=== PATIENT | male | born 1955 | race African-American/Black ===

== ENCOUNTER 2017-01-12 07:17 | Outpatient (CLI) | payer OTHER ==
[~2017-01-12 07:17] MED LIST: JANUVIA100 MG PO; LIPITOR10 MG PO; MOBIC7.5 M1 PO; NEXIUM40 M1 PO
[2017-01-12 08:11] LABS: PLATELET COUNT 199 K/uL (142-355)
[2017-01-12 08:55] LABS: POTASSIUM 4.7 mmol/L (3.6-5.2); SODIUM 139 mmol/L (136-145)
== END 2017-01-12 19:21 | disposition home or self-care (01) ==
LOC: LABW 07:17
PROVIDERS: Internal Medicine
DX: E11.9 Type 2 diabetes mellitus without complications (principal)
CPT/HCPCS: 36415; 80053; 80061; 81000; 82043; 82570; 83036; 84443; 85027

== ENCOUNTER 2017-06-11 10:26 | Outpatient (CLI) | payer OTHER ==
[2017-06-11 11:00] LABS: PLATELET COUNT 270 K/uL (142-355)
[2017-06-11 11:07] LABS: POTASSIUM 3.8 mmol/L (3.6-5.2); SODIUM 138 mmol/L (136-145)
== END 2017-06-11 11:30 | disposition home or self-care (01) ==
LOC: LABW 10:26
PROVIDERS: Internal Medicine
DX: K92.2 Gastrointestinal hemorrhage, unspecified (principal)
CPT/HCPCS: 36415; 80053; 81000; 85027

== ENCOUNTER 2017-07-20 07:59 | Outpatient (CLI) | payer OTHER ==
[2017-07-20 08:44] LABS: PLATELET COUNT 238 K/uL (142-355)
[2017-07-20 08:47] LABS: POTASSIUM 4.2 mmol/L (3.6-5.2); SODIUM 140 mmol/L (136-145)
== END 2017-07-20 19:12 | disposition home or self-care (01) ==
LOC: LABW 07:59
PROVIDERS: Internal Medicine
DX: E11.9 Type 2 diabetes mellitus without complications (principal)
CPT/HCPCS: 36415; 80053; 80061; 81000; 83036; 84443; 85027

== ENCOUNTER 2018-06-10 08:17 | Outpatient (CLI) | payer OTHER ==
[2018-06-10 08:48] LABS: PLATELET COUNT 224 K/uL (142-355)
[2018-06-10 08:59] LABS: POTASSIUM 4.1 mmol/L (3.6-5.2)
== END 2018-06-10 21:50 | disposition home or self-care (01) ==
LOC: LABW 08:17
PROVIDERS: Internal Medicine
DX: E11.9 Type 2 diabetes mellitus without complications (principal); Z12.5 Encounter for screening for malignant neoplasm of prostate
CPT/HCPCS: 36415; 80053; 80061; 81000; 82043; 82570; 83036; 84153; 84443; 85027

== ENCOUNTER 2019-07-19 07:32 | Outpatient (CLI) | payer OTHER ==
[2019-07-19 07:57] LABS: PLATELET COUNT 228 K/uL (142-355)
[2019-07-19 08:19] LABS: POTASSIUM 4.2 mmol/L (3.6-5.2)
== END 2019-07-19 20:47 | disposition home or self-care (01) ==
LOC: LABW 07:32
PROVIDERS: Internal Medicine
DX: E11.9 Type 2 diabetes mellitus without complications (principal)
CPT/HCPCS: 36415; 80053; 80061; 81000; 83036; 84439; 84443; 85027

== ENCOUNTER 2019-08-17 14:17 | Outpatient (CLI) | payer OTHER | END 2019-08-17 19:31 | disposition home or self-care (01) | LOC: RAD 14:17 | DX: M79.642 Pain in left hand (principal) ==

== ENCOUNTER 2020-07-25 08:20 | Outpatient (CLI) | payer OTHER ==
[2020-07-25 08:47] LABS: PLATELET COUNT 224 K/uL (142-355)
[2020-07-25 09:27] LABS: POTASSIUM 4.7 mmol/L (3.6-5.2)
== END 2020-07-25 22:09 | disposition home or self-care (01) ==
LOC: LABW 08:20
PROVIDERS: ATTEND Internal Medicine
DX: E11.9 Type 2 diabetes mellitus without complications (principal)
CPT/HCPCS: 36415; 80053; 80061; 81000; 82043; 82570; 83036; 84439; 84443; 85027

== ENCOUNTER 2020-08-20 14:20 | Outpatient (CLI) | payer OTHER | END 2020-08-20 20:47 | disposition home or self-care (01) | LOC: RAD 14:20 | PROVIDERS: ATTEND Internal Medicine | DX: M72.2 Plantar fascial fibromatosis (principal) ==

== ENCOUNTER 2021-12-24 15:22 | Outpatient (CLI) | payer OTHER | END 2021-12-24 19:06 | disposition home or self-care (01) | LOC: RAD 15:22 | PROVIDERS: ATTEND Internal Medicine | DX: R06.09 Other forms of dyspnea (principal) ==

== ENCOUNTER 2021-12-25 07:54 | Outpatient (CLI) | payer OTHER ==
[2021-12-25 08:47] LABS: PLATELET COUNT 231 K/uL (142-355)
[2021-12-25 09:08] LABS: POTASSIUM 4.3 mmol/L (3.6-5.2)
== END 2021-12-25 19:14 | disposition home or self-care (01) ==
LOC: LABW 07:54
PROVIDERS: ATTEND Internal Medicine
DX: E11.9 Type 2 diabetes mellitus without complications (principal); R06.09 Other forms of dyspnea
CPT/HCPCS: 36415; 80053; 80061; 81000; 82043; 83036; 83880; 84439; 84443; 85027; 85379

== ENCOUNTER 2022-04-15 09:30 | Outpatient (CLI) | payer OTHER | END 2022-04-15 18:48 | disposition home or self-care (01) | LOC: RAD 09:30 | PROVIDERS: ATTEND Internal Medicine | DX: M54.59 Other low back pain (principal) ==

== ENCOUNTER 2022-04-16 07:26 | Outpatient (CLI) | payer OTHER ==
[2022-04-16 07:41] LABS: PLATELET COUNT 220 K/uL (142-355)
[2022-04-16 08:07] LABS: POTASSIUM 4.5 mmol/L (3.6-5.2)
== END 2022-04-16 19:02 | disposition home or self-care (01) ==
LOC: LABW 07:26
PROVIDERS: ATTEND Internal Medicine
DX: E11.9 Type 2 diabetes mellitus without complications (principal); Z12.5 Encounter for screening for malignant neoplasm of prostate; N40.0 Benign prostatic hyperplasia without lower urinary tract symptoms
CPT/HCPCS: 36415; 80053; 80061; 81002; 82043; 82570; 83036; 84153; 85027

== ENCOUNTER 2022-08-13 10:08 | Day surgery (SDC) | payer OTHER | END 2022-08-13 14:10 | disposition home or self-care (01) | LOC: OR 10:08 | PROVIDERS: ATTEND Internal Medicine Gastroenterology | PROC: 0DJD8ZZ Inspection of Lower Intestinal Tract, Via Natural or Artificial Opening Endoscopic (ICD-10-PCS; principal; 2022-08-13) | DX: K64.8 Other hemorrhoids (principal); Z12.11 Encounter for screening for malignant neoplasm of colon; Z80.0 Family history of malignant neoplasm of digestive organs ==

== ENCOUNTER 2022-08-28 07:50 | Outpatient (CLI) | payer OTHER ==
[2022-08-28 08:41] LABS: PLATELET COUNT 200 K/uL (142-355)
== END 2022-08-28 18:56 | disposition home or self-care (01) ==
LOC: LABW 07:50
PROVIDERS: ATTEND Internal Medicine
DX: E11.9 Type 2 diabetes mellitus without complications (principal)
CPT/HCPCS: 36415; 80053; 80061; 81002; 83036; 84439; 84443; 85027